=== PATIENT | male | born 1960 | race Two or more races ===

== ENCOUNTER → 2019-12-16 | Emergency (ER) | payer OTHER ==
[~2019-12-16] VITALS: Ht 175.3 cm; Wt 95.3 kg
[~2019-12-16] MED LIST: CEFTRIAXONE2 GM IV; FOLIC ACID1 MG PO; INTESTINEX680 M1 PO; LASIX40 MG PO; LEVOXYL150 MCG; LISINOPRIL40 MG PO; NORVASC5 MG PO; PRE PROTEIN1 EACH PO; TOPROL XL25 MG PO; TYLENOL; TYLENOL325 MG; VITAMIN B-121000 MC2 SL; XARELTO20 MG PO
== END | disposition left against medical advice (07) ==
LOC: ER 11:45
DX: B34.9 Viral infection, unspecified (principal); Z03.818 Encounter for observation for suspected exposure to other biological agents ruled out

== ENCOUNTER 2019-12-17 11:54 | Inpatient (IN) | payer OTHER ==
[~2019-12-17] VITALS: Ht 175.3 cm; Wt 99.8 kg
[~2019-12-17 11:54] MED LIST changes: -CEFTRIAXONE2 GM IV; -FOLIC ACID1 MG PO; -INTESTINEX680 M1 PO; -LASIX40 MG PO; -LISINOPRIL40 MG PO; -NORVASC5 MG PO; -PRE PROTEIN1 EACH PO; -TOPROL XL25 MG PO; -TYLENOL; -TYLENOL325 MG; -VITAMIN B-121000 MC2 SL; -XARELTO20 MG PO
[2019-12-17] MEDS ORDERED: TYLENOL (12:32)
[2019-12-18] MEDS ORDERED: TYLENOL325 MG (16:17)
[2019-12-28] MEDS ORDERED: LISINOPRIL40 MG PO (10:54)
[2019-12-28] MEDS ORDERED: XARELTO20 MG PO (10:54)
[2019-12-28] MEDS ORDERED: TOPROL XL25 MG PO (10:55)
[2019-12-28] MEDS ORDERED: INTESTINEX680 M1 PO (10:58)
[2019-12-28] MEDS ORDERED: NORVASC5 MG PO (10:59)
[2019-12-28] MEDS ORDERED: LASIX40 MG PO (10:59)
[2019-12-28] MEDS ORDERED: PRE PROTEIN1 EACH PO (11:00)
[2019-12-28] MEDS ORDERED: FOLIC ACID1 MG PO (11:01)
[2019-12-28] MEDS ORDERED: VITAMIN B-121000 MC2 SL (11:01)
[2019-12-28] MEDS ORDERED: CEFTRIAXONE2 GM IV (11:04)
== END 2019-12-28 16:08 | disposition home or self-care (01) | DRG 872 ==
LOC: ER 11:54 → ICU-2 18:29 → ICU 12-22 14:37 → MEDI 12-23 12:22 → ICU 12-23 12:47 → MEDI 12-23 16:44
PROVIDERS: ADMIT Internal Medicine; ATTEND Internal Medicine
PROC: 4A033R1 Measurement of Arterial Saturation, Peripheral, Percutaneous Approach (ICD-10-PCS; 2019-12-17)
PROC: CB2YYZZ Tomographic (Tomo) Nuclear Medicine Imaging of Respiratory System using Other Radionuclide (ICD-10-PCS; 2019-12-17)
PROC: B54DZZZ Ultrasonography of Bilateral Lower Extremity Veins (ICD-10-PCS; 2019-12-18)
PROC: 8E0ZXY6 Isolation (ICD-10-PCS; principal; 2019-12-20)
PROC: 4A12X4Z Monitoring of Cardiac Electrical Activity, External Approach (ICD-10-PCS; 2019-12-23)
DX: R78.81 Bacteremia (principal); B34.9 Viral infection, unspecified; B95.7 Other staphylococcus as the cause of diseases classified elsewhere; I48.0 Paroxysmal atrial fibrillation; E03.9 Hypothyroidism, unspecified; E86.0 Dehydration; E66.9 Obesity, unspecified

== ENCOUNTER 2020-05-22 13:58 | Outpatient (CLI) | payer OTHER ==
[~2020-05-22 13:58] MED LIST changes: +CEFTRIAXONE2 GM IV; +FOLIC ACID1 MG PO; +INTESTINEX680 M1 PO; +LASIX40 MG PO; +LISINOPRIL40 MG PO; +NORVASC5 MG PO; +PRE PROTEIN1 EACH PO; +TOPROL XL25 MG PO; +TYLENOL; +TYLENOL325 MG; +VITAMIN B-121000 MC2 SL; +XARELTO20 MG PO
== END 2020-05-22 15:00 | disposition home or self-care (01) ==
LOC: RAD 13:58
DX: M54.5 Low back pain (principal); M99.03 Segmental and somatic dysfunction of lumbar region; M51.37 Other intervertebral disc degeneration, lumbosacral region; M99.04 Segmental and somatic dysfunction of sacral region; M99.01 Segmental and somatic dysfunction of cervical region; M54.2 Cervicalgia; M62.830 Muscle spasm of back; M99.02 Segmental and somatic dysfunction of thoracic region

== ENCOUNTER → 2020-07-25 | Outpatient (CLI) | payer OTHER | END | disposition home or self-care (01) | LOC: SONOGRAMA 09:37 | PROVIDERS: ATTEND Internal Medicine Gastroenterology | DX: K76.0 Fatty (change of) liver, not elsewhere classified (principal); R10.84 Generalized abdominal pain; D41.4 Neoplasm of uncertain behavior of bladder ==

== ENCOUNTER 2020-08-13 14:36 | Outpatient (CLI) | payer OTHER | END 2020-08-13 14:41 | disposition home or self-care (01) | LOC: LAB 14:36 | DX: N20.0 Calculus of kidney (principal) ==

== ENCOUNTER 2020-08-14 08:21 | Outpatient (CLI) | payer OTHER | END 2020-08-14 08:24 | disposition home or self-care (01) | LOC: TOM 08:21 | PROVIDERS: ATTEND Surgery | DX: R22.1 Localized swelling, mass and lump, neck (principal); M53.82 Other specified dorsopathies, cervical region; D48.1 Neoplasm of uncertain behavior of connective and other soft tissue ==

== ENCOUNTER → 2021-02-17 08:19 | Outpatient (CLI) | payer OTHER | END | disposition home or self-care (01) | LOC: NUCLEAR 01-20 08:49 | PROVIDERS: ATTEND Internal Medicine | DX: R07.9 Chest pain, unspecified (principal) | CPT/HCPCS: 78452; 93017; A9500 ==

== ENCOUNTER 2021-11-16 09:42 | Outpatient (CLI) | payer OTHER | END 2021-11-16 10:12 | disposition home or self-care (01) | LOC: PPH VACUNA 09:42 | PROVIDERS: ATTEND Emergency Medicine Pediatric Emergency Medicine | DX: Z23 Encounter for immunization (principal) ==

== ENCOUNTER 2022-02-13 09:29 | Outpatient (CLI) | payer OTHER | END 2022-02-13 09:34 | disposition home or self-care (01) | LOC: RAD 09:29 | PROVIDERS: ATTEND Family Medicine | DX: M75.52 Bursitis of left shoulder (principal); M75.32 Calcific tendinitis of left shoulder ==

== ENCOUNTER 2023-04-18 10:01 | Inpatient (IN) | payer OTHER ==
[~2023-04-18] VITALS: Ht 203.2 cm; Wt 99.8 kg
[2023-04-18] MEDS ORDERED: GLIMEPIRIDE1 MG (10:06)
[2023-04-18] MEDS ORDERED: LIPITOR80 MG PO (10:07)
[2023-04-18 11:26] LABS: HEMATOCRIT 41.2 % (39.0-48.0); HEMOGLOBIN 13.4 g/dL (13-16.00); MEAN CELL VOLUME 92.8 fL (80.0-100.00); MEAN CORPUSCULAR HEMOGLOBIN 30.2 pg (27.00-32.0); MEAN CORPUSCULAR HGB CONC 32.5 g/dl (32.0-36.0); PLATELET COUNT 265 K/uL (150-450); RED BLOOD COUNT 4.44 M/uL (4.00-6.00); RED CELL DISTRIBUTION WIDTH 12.9 % (11.5-14.5)
[2023-04-18 11:39] LABS: INR 1.1; PARTIAL THROMBOPLASTIN TIME 27.4 SECONDS (22.0-34.0); PROTHROMBIN TIME 11.5 SECONDS (9.0-11.5)
[2023-04-18 11:44] LABS: URINE APPEARANCE Cloudy; URINE BILIRRUBIN Small (NEGATIVE); URINE BLOOD Moderate; URINE COLOR Dark Yellow; URINE GLUCOSE Negative (NEGATIVE); URINE LEUKOCYTE Trace; URINE NITRATE Negative; URINE PROTEIN 30 (NEGATIVE)
[2023-04-18 11:45] LABS: URINE BACTERIA 22.6 uL (0.0-1933); URINE EPITHELIAL CELLS 9.1 uL (0.0-38.8); URINE RBC 120.4 uL (0.0-20.8); URINE WBC 41.1 uL (0.0-23.2)
[2023-04-18 11:51] LABS: CALCIUM 8.7 mg/dL (8.5-10.1); CREATININE SERUM 1.04 mg/dL (0.70-1.30); GFR 71.67; POTASSIUM 3.95 mEq/L (3.5-5.1)
[2023-04-20 07:06] LABS: HEMATOCRIT 37.6 % (39.0-48.0); HEMOGLOBIN 12.9 g/dL (13-16.00); MEAN CORPUSCULAR HEMOGLOBIN 31.6 pg (27.00-32.0); MEAN CORPUSCULAR HGB CONC 34.4 g/dl (32.0-36.0); PLATELET COUNT 262 K/uL (150-450); RED BLOOD COUNT 4.09 M/uL (4.00-6.00); RED CELL DISTRIBUTION WIDTH 13.2 % (11.5-14.5)
[2023-04-20 07:19] LABS: ALBUMIN 2.7 gm/dL (3.4-5.0); BILIRUBIN TOTAL 1.35 mg/dL (0.3-1.2); CALCIUM 8.6 mg/dL (8.5-10.1); CREATININE SERUM 1.01 mg/dL (0.70-1.30); GFR 74.13; GLOBULINA 3.1 G/DL (2.4-3.5); POTASSIUM 4.38 mEq/L (3.5-5.1); TOTAL PROTEIN 5.8 gm/dL (6.4-8.2)
[2023-04-22 07:17] LABS: HEMOGLOBIN 11.8 g/dL (13-16.00); MEAN CELL VOLUME 91.1 fL (80.0-100.00); MEAN CORPUSCULAR HEMOGLOBIN 31.6 pg (27.00-32.0); MEAN CORPUSCULAR HGB CONC 34.7 g/dl (32.0-36.0); PLATELET COUNT 325 K/uL (150-450); RED BLOOD COUNT 3.73 M/uL (4.00-6.00); RED CELL DISTRIBUTION WIDTH 12.8 % (11.5-14.5)
[2023-04-22 07:27] LABS: CALCIUM 8.6 mg/dL (8.5-10.1); CREATININE SERUM 0.95 mg/dL (0.70-1.30); GFR 79.56; POTASSIUM 3.73 mEq/L (3.5-5.1)
== END 2023-04-25 15:12 | disposition home or self-care (01) | DRG 329 ==
LOC: ER 10:01 → SURH 14:45 → SEC-K 14:45 → O/R 16:28 → SURH 19:04
PROVIDERS: General Practice; Surgery; ADMIT Internal Medicine; ATTEND Internal Medicine
PROC: 0DJD0ZZ Inspection of Lower Intestinal Tract, Open Approach (ICD-10-PCS; 2023-04-18)
PROC: 0DTG0ZZ Resection of Left Large Intestine, Open Approach (ICD-10-PCS; 2023-04-18)
PROC: BW21YZZ Computerized Tomography (CT Scan) of Abdomen and Pelvis using Other Contrast (ICD-10-PCS; 2023-04-18)
PROC: 0D1N0Z4 Bypass Sigmoid Colon to Cutaneous, Open Approach (ICD-10-PCS; principal; 2023-04-18 15:00)
DX: K57.20 Diverticulitis of large intestine with perforation and abscess without bleeding (principal); A41.59 Other Gram-negative sepsis; K65.9 Peritonitis, unspecified; K63.5 Polyp of colon; I10 Essential (primary) hypertension; E11.9 Type 2 diabetes mellitus without complications; E03.9 Hypothyroidism, unspecified; Z79.84 Long term (current) use of oral hypoglycemic drugs

== ENCOUNTER 2023-05-03 11:33 | Inpatient (IN) | payer OTHER ==
[~2023-05-03] VITALS: Ht 177.8 cm; Wt 81.6 kg
[~2023-05-03 11:33] MED LIST changes: +GLIMEPIRIDE1 MG; +LIPITOR80 MG PO
[2023-05-03 12:18] LABS: HEMATOCRIT 42.2 % (39.0-48.0); HEMOGLOBIN 14.3 g/dL (13-16.00); MEAN CELL VOLUME 90.5 fL (80.0-100.00); MEAN CORPUSCULAR HEMOGLOBIN 30.7 pg (27.00-32.0); MEAN CORPUSCULAR HGB CONC 33.9 g/dl (32.0-36.0); PLATELET COUNT 453 K/uL (150-450); RED BLOOD COUNT 4.66 M/uL (4.00-6.00); RED CELL DISTRIBUTION WIDTH 13.7 % (11.5-14.5)
[2023-05-03 12:51] LABS: INR 1.04; PARTIAL THROMBOPLASTIN TIME 25.1 SECONDS (22.0-34.0); PROTHROMBIN TIME 10.9 SECONDS (9.0-11.5)
[2023-05-03 12:57] LABS: BILIRUBIN TOTAL 0.84 mg/dL (0.3-1.2); CALCIUM 8.9 mg/dL (8.5-10.1); CREATININE SERUM 1.01 mg/dL (0.70-1.30); GFR 74.13; POTASSIUM 3.64 mEq/L (3.5-5.1)
[2023-05-05 04:29] LABS: HEMATOCRIT 35.9 % (39.0-48.0); HEMOGLOBIN 12.1 g/dL (13-16.00); MEAN CELL VOLUME 91.5 fL (80.0-100.00); MEAN CORPUSCULAR HEMOGLOBIN 30.8 pg (27.00-32.0); MEAN CORPUSCULAR HGB CONC 33.6 g/dl (32.0-36.0); PLATELET COUNT 370 K/uL (150-450); RED BLOOD COUNT 3.93 M/uL (4.00-6.00); RED CELL DISTRIBUTION WIDTH 13.8 % (11.5-14.5)
[2023-05-05 05:03] LABS: ALBUMIN 2.2 gm/dL (3.4-5.0); BILIRUBIN TOTAL 1.03 mg/dL (0.3-1.2); CREATININE SERUM 1.05 mg/dL (0.70-1.30); GFR 70.89; GLOBULINA 3.2 G/DL (2.4-3.5); POTASSIUM 4.22 mEq/L (3.5-5.1); TOTAL PROTEIN 5.4 gm/dL (6.4-8.2)
[2023-05-06 06:15] LABS: HEMOGLOBIN 10.9 g/dL (13-16.00); MEAN CELL VOLUME 90.3 fL (80.0-100.00); MEAN CORPUSCULAR HEMOGLOBIN 30.8 pg (27.00-32.0); MEAN CORPUSCULAR HGB CONC 34.1 g/dl (32.0-36.0); PLATELET COUNT 341 K/uL (150-450); RED BLOOD COUNT 3.54 M/uL (4.00-6.00); RED CELL DISTRIBUTION WIDTH 13.8 % (11.5-14.5)
[2023-05-06 07:02] LABS: ALBUMIN 2.1 gm/dL (3.4-5.0); BILIRUBIN TOTAL 0.8 mg/dL (0.3-1.2); CALCIUM 7.9 mg/dL (8.5-10.1); CREATININE SERUM 0.95 mg/dL (0.70-1.30); GFR 79.56; GLOBULINA 2.8 G/DL (2.4-3.5); POTASSIUM 4.02 mEq/L (3.5-5.1); TOTAL PROTEIN 4.9 gm/dL (6.4-8.2)
[2023-05-09 06:47] LABS: HEMATOCRIT 37.7 % (39.0-48.0); HEMOGLOBIN 12.8 g/dL (13-16.00); MEAN CELL VOLUME 91.4 fL (80.0-100.00); MEAN CORPUSCULAR HEMOGLOBIN 30.9 pg (27.00-32.0); MEAN CORPUSCULAR HGB CONC 33.8 g/dl (32.0-36.0); PLATELET COUNT 384 K/uL (150-450); RED BLOOD COUNT 4.13 M/uL (4.00-6.00); RED CELL DISTRIBUTION WIDTH 13.7 % (11.5-14.5)
[2023-05-09 07:41] LABS: ALBUMIN 2.5 gm/dL (3.4-5.0); BILIRUBIN TOTAL 0.56 mg/dL (0.3-1.2); CALCIUM 8.7 mg/dL (8.5-10.1); CREATININE SERUM 1.12 mg/dL (0.70-1.30); GFR 65.8; GLOBULINA 3.5 G/DL (2.4-3.5)
[2023-05-09 07:59] LABS: POTASSIUM 4.69 mEq/L (3.5-5.1)
== END 2023-05-09 15:42 | disposition home or self-care (01) | DRG 909 ==
LOC: ER 11:33 → O/R 12:39 → SEC-K 12:39 → ICU 12:39 → O/R 13:01 → ICU 21:09 → MEDI 05-05 20:34
PROVIDERS: Emergency Medicine; Specialist; Student in an Organized Health Care Education/Training Program; Surgery; ADMIT Internal Medicine; ATTEND Internal Medicine
PROC: 0DB80ZZ Excision of Small Intestine, Open Approach (ICD-10-PCS; 2023-05-03)
PROC: 3E1M38Z Irrigation of Peritoneal Cavity using Irrigating Substance, Percutaneous Approach (ICD-10-PCS; 2023-05-03)
PROC: 0DJD0ZZ Inspection of Lower Intestinal Tract, Open Approach (ICD-10-PCS; principal; 2023-05-03 14:30)
DX: T81.31XA Disruption of external operation (surgical) wound, not elsewhere classified, initial encounter (principal); I10 Essential (primary) hypertension; E11.9 Type 2 diabetes mellitus without complications; Z79.4 Long term (current) use of insulin; E03.9 Hypothyroidism, unspecified

== ENCOUNTER 2023-05-12 14:58 | Inpatient (IN) | payer OTHER ==
[~2023-05-12] VITALS: Ht 175.3 cm; Wt 231.8 kg
[2023-05-12 16:45] LABS: HEMATOCRIT 41.1 % (39.0-48.0); MEAN CELL VOLUME 89.9 fL (80.0-100.00); MEAN CORPUSCULAR HEMOGLOBIN 30.7 pg (27.00-32.0); MEAN CORPUSCULAR HGB CONC 34.1 g/dl (32.0-36.0); PLATELET COUNT 411 K/uL (150-450); RED BLOOD COUNT 4.57 M/uL (4.00-6.00); RED CELL DISTRIBUTION WIDTH 13.9 % (11.5-14.5)
[2023-05-12 17:13] LABS: ALBUMIN 2.6 gm/dL (3.4-5.0); BILIRUBIN TOTAL 0.55 mg/dL (0.3-1.2); CREATININE SERUM 1.2 mg/dL (0.70-1.30); GFR 60.76; GLOBULINA 4.3 G/DL (2.4-3.5); POTASSIUM 3.7 mEq/L (3.5-5.1); TOTAL PROTEIN 6.9 gm/dL (6.4-8.2)
[2023-05-12 21:50] LABS: INR 1.03; PROTHROMBIN TIME 10.8 SECONDS (9.0-11.5)
[2023-05-13 08:02] LABS: URINE APPEARANCE Turbid; URINE BILIRRUBIN Negative (NEGATIVE); URINE BLOOD Negative; URINE COLOR Yellow; URINE GLUCOSE Negative (NEGATIVE); URINE LEUKOCYTE Negative; URINE NITRATE Negative; URINE PROTEIN Trace (NEGATIVE)
[2023-05-13 08:07] LABS: URINE BACTERIA 40.3 uL (0.0-1933); URINE EPITHELIAL CELLS 2.1 uL (0.0-38.8); URINE RBC 23.5 uL (0.0-20.8); URINE WBC 20.4 uL (0.0-23.2)
[2023-05-13 08:22] LABS: URINE CRYSTALS MANY /HPF
[2023-05-14 07:59] LABS: HEMOGLOBIN 11.9 g/dL (13-16.00); MEAN CELL VOLUME 91.4 fL (80.0-100.00); MEAN CORPUSCULAR HEMOGLOBIN 31.2 pg (27.00-32.0); MEAN CORPUSCULAR HGB CONC 34.1 g/dl (32.0-36.0); PLATELET COUNT 291 K/uL (150-450); RED BLOOD COUNT 3.83 M/uL (4.00-6.00); RED CELL DISTRIBUTION WIDTH 14.1 % (11.5-14.5)
[2023-05-14 09:02] LABS: ALBUMIN 2.4 gm/dL (3.4-5.0); CREATININE SERUM 0.99 mg/dL (0.70-1.30); GFR 75.87; MAGNESIUM 1.8 mg/dL (1.8-2.4); PHOSPHOROUS 3.7 mg/dL (2.5-4.9); POTASSIUM 3.91 mEq/L (3.5-5.1)
[2023-05-21 07:52] LABS: HEMATOCRIT 36.7 % (39.0-48.0); HEMOGLOBIN 12.4 g/dL (13-16.00); MEAN CELL VOLUME 92.2 fL (80.0-100.00); MEAN CORPUSCULAR HEMOGLOBIN 31.1 pg (27.00-32.0); MEAN CORPUSCULAR HGB CONC 33.7 g/dl (32.0-36.0); PLATELET COUNT 338 K/uL (150-450); RED BLOOD COUNT 3.98 M/uL (4.00-6.00)
[2023-05-21 08:38] LABS: ALBUMIN 2.7 gm/dL (3.4-5.0); BILIRUBIN TOTAL 0.37 mg/dL (0.3-1.2); CALCIUM 8.6 mg/dL (8.5-10.1); CREATININE SERUM 1.12 mg/dL (0.70-1.30); GFR 65.8; GLOBULINA 3.2 G/DL (2.4-3.5); POTASSIUM 4.39 mEq/L (3.5-5.1); TOTAL PROTEIN 5.9 gm/dL (6.4-8.2)
== END 2023-05-24 14:51 | disposition home or self-care (01) | DRG 862 ==
LOC: ER 14:58 → MEDI 21:33
PROVIDERS: General Practice; Internal Medicine Nephrology; ADMIT Internal Medicine; ATTEND Internal Medicine
PROC: BW21ZZZ Computerized Tomography (CT Scan) of Abdomen and Pelvis (ICD-10-PCS; principal; 2023-05-12)
PROC: BW21YZZ Computerized Tomography (CT Scan) of Abdomen and Pelvis using Other Contrast (ICD-10-PCS; 2023-05-16)
PROC: BW21YZZ Computerized Tomography (CT Scan) of Abdomen and Pelvis using Other Contrast (ICD-10-PCS; 2023-05-23)
DX: T81.43XA Infection following a procedure, organ and space surgical site, initial encounter (principal); K65.1 Peritoneal abscess; N17.9 Acute kidney failure, unspecified; B96.1 Klebsiella pneumoniae [K. pneumoniae] as the cause of diseases classified elsewhere; B96.5 Pseudomonas (aeruginosa) (mallei) (pseudomallei) as the cause of diseases classified elsewhere; B95.2 Enterococcus as the cause of diseases classified elsewhere; B96.89 Other specified bacterial agents as the cause of diseases classified elsewhere; E03.9 Hypothyroidism, unspecified; E11.9 Type 2 diabetes mellitus without complications; Z79.4 Long term (current) use of insulin; Z20.822 Contact with and (suspected) exposure to COVID-19

== ENCOUNTER 2023-08-11 13:55 | Outpatient (CLI) | payer OTHER | END 2023-08-11 14:38 | disposition home or self-care (01) | LOC: SONOGRAMA 13:55 | PROVIDERS: ATTEND Student in an Organized Health Care Education/Training Program | DX: E04.1 Nontoxic single thyroid nodule (principal) ==

== ENCOUNTER 2025-02-26 08:05 | Outpatient (CLI) | payer OTHER ==
[~2025-02-26 08:05] MED LIST changes: -GLIMEPIRIDE1 MG; +GLIMEPIRIDE1 MG PO; -LEVOXYL150 MCG; +LEVOXYL150 MCG PO; +TOPROL XL100 M1 PO; +ZOLOFT25 MG PO
== END 2025-02-26 08:06 | disposition home or self-care (01) ==
LOC: TOM 08:05
PROVIDERS: ATTEND Surgery
DX: R10.9 Unspecified abdominal pain (principal)
CPT/HCPCS: 74178; Q9965